=== PATIENT | female | born 1975 | race Caucasian/White ===

== ENCOUNTER 2020-12-05 14:27 | Emergency (ER) | payer OTHER ==
[~2020-12-05] VITALS: Ht 149.9 cm; Wt 52.2 kg
[2020-12-05] MEDS ORDERED: SINGULAIR10 MG (14:55)
[2020-12-05] MEDS ORDERED: [UNRECOGNIZED DRUG - OTHER] (14:55)
[2020-12-05] MEDS ORDERED: ANECREAM5 GM TOP (17:14)
[2020-12-05] MEDS ORDERED: EPSOM SALT454 G1 TOP (17:14)
[2020-12-05] MEDS ORDERED: STOOL SOFTENER50 MG PO (17:17)
== END 2020-12-05 17:21 | disposition home or self-care (01) ==
LOC: ER 14:27
DX: K64.4 Residual hemorrhoidal skin tags (principal)